=== PATIENT | male | born 2000 | race Caucasian/White ===

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

== ENCOUNTER 2023-05-05 03:05 | Emergency (ER) | payer MEDICAID, OTHER ==
[~2023-05-05] VITALS: Ht 182.9 cm; Wt 63.0 kg
[2023-05-05 03:32] VITALS: BP 124/71; PULSE 69; RESP 12; TEMP 97.7; O2SAT 98
== END 2023-05-05 04:48 | disposition left against medical advice (07) ==
LOC: ER 03:05
DX: M54.2 Cervicalgia (principal); Z53.21 Procedure and treatment not carried out due to patient leaving prior to being seen by health care provider
CPT/HCPCS: 99281

== ENCOUNTER 2025-01-21 10:18 | Emergency (ER) | payer OTHER ==
[~2025-01-21] VITALS: Ht 180.3 cm; Wt 64.0 kg
[2025-01-21 10:22] VITALS: BP 148/89; PULSE 82; RESP 18; TEMP 97.6; O2SAT 99
--- NOTE | 2025-01-21 10:43 | Physician Documentation ---
History of Present Illness ~ Chief Complaint: Laceration Stated Complaint: FINGER LAC Time Seen by MD: 10:29 Primary Medical Doctor: Dick [facility] This is a 24-year-old female who presents with a laceration to his left 5th finger sustained yesterday from a utility knife with a freshly changed blade. Patient reports he has full use of the finger with no sensory deficit. Patient reports last tetanus shot approximately seven years ago. Tetanus Within 5 Years: Yes Medication Reconciliation Allergies: Coded Allergies: milk (Verified Allergy, Intermediate, 01/21/25) wheat (Verified Allergy, Intermediate, 11/28/11) Scheduled Cephalexin*Monohydrate* (Keflex*), 1 CAP PO QID Risperidone (Risperidone), 0.5 MG PO BID, (Reported) Past Medical History Past Medical History: No Pertinent History, *PSYCH* Past Surgical History: other Alcohol Use: None Drug Use: none Lives with: Mother Lives In: Home Occupation: child Review of Systems ROS Laceration to left 5th finger as stated above in the HPI, otherwise all systems are reviewed and negative. Physical Exam Vital Signs: Temperature: 97.6, Source: Temporal, Heart Rate: 82, Respiratory Rate: 18, BP: 148/89, Pulse Oximetry: 99, Weight: 64.000 Physical Exam VITALS: Reviewed and as above. GENERAL: Alert, nontoxic appearing, no apparent distress. RESPIRATORY: No increased work of breathing, no respiratory distress, speaking in full clear sentences EXTREMITIES: 2 cm laceration to the palmar lateral aspect of left 5th finger, full flexure and extensor strength, no evidence of tendon involvement, no foreign body, brisk capillary refill distal to the injury Procedures Laceration/Wound Repair Laceration : Location: Left 4th finger Length (cm): 2 Anesthesia: Lidocaine Volume Anesthetic (mls): 5 Prep: irrigated by nurse Irrigated w/ Saline (mls): 500 Undermining: none Margins: revised Foreign Body: not identified Repaired: skin Wound Repaired With: sutures Suture Size/Type: 4-0 Number of Superficial Sutures: 5 Layer Closure?: No Dressing Applied: simple Splint Applied?: No Sling Applied?: No Tolerated Procedure Well?: yes, no complications Progress Results/Orders Results/Orders Orders - INDIGO LOTT Laceration/I&D Tray Set Up (01/21/25 10:38) Wound Care Orders (01/21/25 10:38) Completed Orders - INDIGO LOTTP Tetanus/Pertuss/Diph Acell/Pf (Boostrix (01/21/25 10:40) Lidocaine 1% 30ml Vial (Xylocaine 1% Via (01/21/25 10:40) Vital Signs 01/21/25 10:22 Temp 97.6 Pulse 82 Resp 18 B/P (MAP) 148/89 Pulse Ox 99 Medical Decision Making Findings This 24-year-old male presented with a 2 cm laceration to the left lateral palmar aspect 5th finger sustained yesterday from a utility knife with a newly changed blade, physical exam did not demonstrate evidence of tendon involvement as laceration was to the lateral surface and it was reassuring patient full strength in flexion and extension. The finger was neurovascularly intact, there was no evidence of retained foreign body and laceration was repaired without complication. Your physical exam was benign patient vital signs stable in his appropriate for outpatient follow up, due to wound being open for 24 hours a short course of prophylactic antibiotics were indicated. As patient has not had a tetanus shot and some time a tetanus booster was provided. Careful return to care precautions and home care instructions provided to patient which he verbalized understanding of. Differential Dx:Considerations: Include: Abrasion, Avulsion, Contusion, Fracture, Hematoma, Neurovascular injury, Retained foreign body Departure Time of Disposition: 11:57 Disposition: 01 HOME / SELF CARE / HOMELESS Impression: Primary Impression: Laceration Condition: Improved Discharge Instructions: Laceration Care, Adult, [id number] Additional Instructions: Keep the area clean and dry, you may wash the area gently but do not soak it. Please take the antibiotics as prescribed. Please return to your choice of medical provider in seven days to have the then re-evaluated and sutures removed. (you may see your primary care, urgent care, or return to the emergency department for suture removal). Please also follow up with your primary care provider in the next few days for wound recheck. Please return to the emergency department for any new or worsening concerning symptoms including but not limited to signs of infection or if you develop a fever. Referrals: NO PRIMARY CARE PROVIDER (PCP) Prescriptions Cephalexin*Monohydrate* (Keflex*) 500 Mg Capsule 1 CAP PO QID for 5 Days, #20 CAP Prov: INDIGO LOTT 01/21/25 Education Educated: Patient Educated regarding: diagnosis, treatment, prognosis, need for follow up Signature Scribe Signature: No scribe Attestation: The note accurately reflects work and decisions made by me.LUDWIG Cosby 01/21/25 20:48 INDIGO LOTT Jan 21, 2025 10:43
[2025-01-21] MEDS: TETanus/Pertussis (Acell)/Diphther VAC/PF (Tdap-Adult) 0.5ml syringe IMVAC ONE (10:58)
[2025-01-21] MEDS: LIDOcaine 1% 30ml preserv. free vial IJ ONE (11:00)
[2025-01-21] MEDS ORDERED: CEPH-585 PO (11:57)
== END 2025-01-21 12:20 | disposition home or self-care (01) ==
LOC: ER 10:18
DX: S61.217A Laceration without foreign body of left little finger without damage to nail, initial encounter (principal); Z88.8 Allergy status to other drugs, medicaments and biological substances; W26.0XXA Contact with knife, initial encounter; Y93.89 Activity, other specified; Y92.89 Other specified places as the place of occurrence of the external cause; Y99.8 Other external cause status
CPT/HCPCS: 12001; 90471; 90715; 99283; J7030; A6449

== ENCOUNTER 2025-01-22 19:32 | Emergency (ER) | payer OTHER ==
[~2025-01-22] VITALS: Ht 180.3 cm; Wt 64.6 kg
[~2025-01-22 19:32] MED LIST changes: +CEPH-585 PO
[2025-01-22 19:51] VITALS: BP 115/67; PULSE 86; RESP 16; TEMP 98; O2SAT 97
--- NOTE | 2025-01-22 21:15 | Physician Documentation ---
History of Present Illness ~ Chief Complaint: Wound Re-Check Stated Complaint: SWOLLEN FINGER Time Seen by MD: 20:25 Primary Medical Doctor: Dick MARTIN Patient is seen today with complaints of wound recheck after patient had sutures performed yesterday. Patient states wound was open for 20 hours before being sutured and patient was started on antibiotics. Patient was consented for some redness that was developing earlier today. Patient states it after sitting in the ED however the redness has decreased significantly in his feeling a lot better. Patient has no other concern or complaint at this time. Patient denies any fevers or chills. Patient states he is taking his antibiotic as prescribed. Tetanus within 5 years?: Yes Medication Reconciliation Allergies: Coded Allergies: milk (Verified Allergy, Intermediate, 01/21/25) wheat (Verified Allergy, Intermediate, 11/28/11) Scheduled Cephalexin*Monohydrate* (Keflex*), 1 CAP PO QID Risperidone (Risperidone), 0.5 MG PO BID, (Reported) Past Medical History Past Medical History: No Pertinent History, *PSYCH* Past Surgical History: other Alcohol Use: None Drug Use: none Lives with: Mother Lives In: Home Occupation: child Review of Systems Constitutional: Denies: chills, fever, weakness Eyes: Denies: pain, blurred vision ENT: Denies: ear pain, nose pain, throat pain, mouth pain Respiratory: Denies: cough, shortness of breath Cardiovascular: Denies: chest pain, palpitations Gastrointestinal: Denies: abdominal pain, nausea, vomiting Genitourinary: Denies: burning, dysuria Male Genitalia: Denies: penile discharge, testicular pain Neurological: Denies: headache, dizziness Musculoskeletal: Denies: pain, swelling Integumentary: Denies: rash, lesions Allergic/Immunologic: Denies: hives, itching Hematologic/Lymphatic: Denies: no symptoms reported Psychiatric: Denies: depression, anxiety Physical Exam Vital Signs: Temperature: 98.0, Source: Temporal, Heart Rate: 86, Respiratory Rate: 16, BP: 115/67, Pulse Oximetry: 97, Weight: 64.600 Physical Exam General: Awake and Alert, no acute distress. HEENT: Conjunctiva pink, Sclera clear, Mucus Membranes moist. Neck: Supple without masses and tenderness. Resp: Unlabored. Lungs clear to auscultation bilaterally. Heart: Regular Rate and rhythm, normal S1 and S2 without murmur, rub or gallop. Extremities: No cyanosis,clubbing or edema. Skin: Patient on exam has fresh sutures of the 5th digit of the left hand at the level of the proximal phalanx ulnar aspect. Patient has no significant ten derness to palpation distally or proximally to the laceration. Patient is neurovascularly intact distally. Motor function is intact distally. Progress Results/Orders Results/Orders Vital Signs 01/22/25 19:51 Temp 98.0 Pulse 86 Resp 16 B/P (MAP) 115/67 Pulse Ox 97 Medical Decision Making Findings Patient is seen today with complaints of wound recheck after patient had sutures performed yesterday. Patient states wound was open for 20 hours before being sutured and patient was started on antibiotics. Patient was consented for some redness that was developing earlier today. Patient states it after sitting in the ED however the redness has decreased significantly in his feeling a lot better. Patient has no other concern or complaint at this time. Patient denies any fevers or chills. Patient states he is taking his antibiotic as prescribed. Patient will continue antibiotics as prescribed. Patient given reassurance today. Patient will return to ED with any worsening, concerning or changing symptoms or signs of infection. Patient will have sutures removed in 6-10 days Departure Disposition: 01 HOME / SELF CARE / HOMELESS Impression: Primary Impression: Wound Condition: Stable Discharge Instructions: Laceration Care, Adult Additional Instructions: Patient will continue antibiotics as prescribed. Patient given reassurance today. Patient will return to ED with any worsening, concerning or changing symptoms or signs of infection. Patient will have sutures removed in 6-10 days Referrals: NO PRIMARY CARE PROVIDER (PCP) Signature Scribe Signature: No scribe Attestation: No scribe [employer]UMN [employer] PAC January 22, 2025 21:15
== END 2025-01-22 21:24 | disposition home or self-care (01) ==
LOC: ER 19:33
DX: S61.217D Laceration without foreign body of left little finger without damage to nail, subsequent encounter (principal); Z91.011 Allergy to milk products; Z91.018 Allergy to other foods; Z79.899 Other long term (current) drug therapy; X58.XXXD Exposure to other specified factors, subsequent encounter
CPT/HCPCS: 99281